=== PATIENT | male | born 2000 | race Hispanic/Latino ===

== ENCOUNTER → 2024-12-13 | Outpatient (REF) ==
[2024-12-15 11:32] LABS: QuantiFERON-TB Gold Plus NEGATIVE (NEGATIVE)
== END ==
LOC: M LAB 11:15
PROVIDERS: ATTEND Family Medicine
DX: Z02.1 Encounter for pre-employment examination (principal)

== ENCOUNTER → 2024-12-21 | Outpatient (REF) | LOC: M LAB 14:16 | PROVIDERS: ATTEND Nurse Practitioner Adult Health | DX: Z00.00 Encounter for general adult medical examination without abnormal findings (principal) ==